=== PATIENT | female | born 1985 | race Caucasian/White ===

== ENCOUNTER 2021-11-23 05:29 | Emergency (ER) | payer OTHER, SELFPAY ==
--- NOTE | ~2021-11-23 | CT_ITS ---
EXAMINATION: CT cervical spine wo con DATE: 11/23/2021 06:40 INDICATION: Head injury. Altered mental status. TECHNIQUE: Computed tomography (CT) of the cervical spine was performed without intravenous contrast. Automated exposure control and iterative reconstruction technique were employed. The dose-length pro duct was 401.36 mGy-cm. COMPARISON: CT cervical spine 06/21/2018 FINDINGS: The endotracheal tube tip is 1.3 cm above the jett. Partially visualized is a nasogastric tube. There is a fracture of posterior skull with extension through the foramen magnum and left occi pital condyle. There is kyphosis of cervical spine. There is 2 mm retrolisthesis of C5 on C6. Vertebr al body heights are normal. There is mildly decreased disc height at C4-C5 and C5-C6. The following d isc levels are specifically discussed: C2-C3: There is no uncovertebral joint osteoarthritis. There is mild right and moderate left facet makenna int osteoarthritis. There is no neural foraminal stenosis. There is no central canal stenosis. C3-C4: There is mild bilateral uncovertebral joint osteoarthritis. There is mild left facet joint ost eoarthritis. There is no neural foraminal stenosis. There is no central canal stenosis. C4-C5: There is mild bilateral uncovertebral joint osteoarthritis. There is no facet joint osteoarthr itis. There is no neural foraminal stenosis. There is no central canal stenosis. C5-C6: There is severe bilateral uncovertebral joint osteoarthritis. There is no facet joint osteoart hritis. There is mild right and moderate left neural foraminal stenosis. There is mild central canal stenosis. C6-C7: There is no uncovertebral joint osteoarthritis. There is no facet joint osteoarthritis. There is no neural foraminal stenosis. There is no central canal stenosis. C7-T1: There is no uncovertebral joint osteoarthritis. There is moderate right and mild left facet makenna int osteoarthritis. There is mild right neural foraminal stenosis. There is no central canal stenosis . IMPRESSION: 1. Fracture of the posterior skull with extension to the foramen magnum and left occipital condyle. 2. Moderate cervical spondylosis. Reviewed, dictated and finalized at location A. IMPRESSION: 1. Fracture of the posterior skull with extension to the foramen magnum and lef t occipital condyle. 2. Moderate cervical spondylosis.
--- NOTE | ~2021-11-23 | XR_ITS ---
EXAMINATION: XR chest ET placement DATE: 11/23/2021 06:48 INDICATION: Intubation. TECHNIQUE: A single frontal view of the chest was obtained. COMPARISON: Chest 2 views 06/21/2018 FINDINGS: The lung volumes are small. There are mild airspace opacities in all lung zones bilaterally with a perihilar predominance. No pleural effusion or pneumothorax. The heart size is normal. The en dotracheal tube tip is 1.9 cm above the jett. The nasogastric tube tip is beyond the inferior dolores n of the radiograph, but at least to the stomach. IMPRESSION: 1. Small lung volumes with mild airspace opacities in all lung zones bilaterally with a perihilar pre dominance, consistent with atelectasis versus mild pulmonary edema versus pneumonia. Reviewed, dictated and finalized at location A. IMPRESSION: 1. Small lung volumes with mild airspace opacities in all lung zones bilaterall y with a perihilar predominance, consistent with atelectasis versus mild pulmon violette edema versus pneumonia.
--- NOTE | ~2021-11-23 | CT_ITS ---
EXAMINATION: CT brain wo con DATE: 11/23/2021 06:40 INDICATION: Altered mental status. TECHNIQUE: Computed tomography (CT) of the head was performed without intravenous contrast. The mA wa s adjusted according to patient size. Iterative reconstruction technique was employed. The dose-lengt h product was 605.33 mGy-cm. COMPARISON: Head CT 06/21/2018 FINDINGS: There are bilateral acute subdural hematomas overlying the brain with maximum thickness of 4 mm on the right and 5 mm on the left. There is acute subarachnoid hemorrhage in sulci of the tempor al lobes. There is no acute ischemic infarct or abnormal mass lesion. There is low-attenuation in ant erior right frontal lobe. The ventricles are normal in size. There is mucosal thickening in the paran dusty sinuses. The orbits are normal. The mastoid air cells are normal. There is a fracture of posteri or skull extending to the foramen magnum and left occipital condyle. Partially visualized is dental d isease. IMPRESSION: 1. Bilateral acute subdural hematomas. 2. Acute subarachnoid hemorrhage in sulci of the temporal lobes. 3. Low-attenuation in anterior right frontal lobe, likely contusion. Sensitivity and specificity are decreased in this area by motion artifact. 4. Fracture of posterior skull extending to the foramen magnum and left occipital condyle. 5. Dental disease. Reviewed, dictated and finalized at location A. IMPRESSION: 1. Bilateral acute subdural hematomas. 2. Acute subarachnoid hemorrhage in sulci of the temporal lobes. 3. Low-attenuation in anterior right frontal lobe, likely contusion. Sensitivit y and specificity are decreased in this area by motion artifact. 4. Fracture of posterior skull extending to the foramen magnum and left occipit al condyle. 5. Dental disease.
[2021-11-23 05:34] VITALS: PULSE 63; RESP 20; O2SAT 99
--- NOTE | 2021-11-23 05:37 | PC.NURSE ---
vrbo dr gonsalez to give ativan 2mg and benadryl 50mg.
--- NOTE | 2021-11-23 05:38 | ECG_ITS ---
Measurements Intervals [place] Rate: 55 P: 23 OH: 90 QRS: 72 QRSD: 88 T: 38 QT: 414 QTc: 398 Interpretive Statements SINUS BRADYCARDIA WITH SHORT OH INTERVAL NONSPECIFIC ST CHANGES [0.05+ mV ST DEPRESSION] NO PREVIOUS ECG AVAILABLE FOR COMPARISON Electronically Signed On 11-23-2021 18:52:25 CDT by Radhika Jim M.D.
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
--- NOTE | 2021-11-23 05:46 | PC.NURSE ---
VORB ERP 50 mg benadryl and 2 mg ativan give ivp 0533 2 mg Ativan and 50 mg Benadryl given ivp
[2021-11-23 05:54] LABS: Basophils Absolute Auto 0.1 K/mm3 (0.0-0.1); Basophils Percent Auto 0.2 % (0.2-1.2); Eosinophils Absolute Auto 0.5 K/mm3 (0-0.3); Eosinophils Percent Auto 2.1 % (0-4.4); Hematocrit 33.9 % (37.0-47.0); Hemoglobin 11.5 g/dL (12.0-15.0); Immature Granulocyte Absolute 0.29 K/mm3 (0.00-0.031); Immature Granulocyte Percent A 1.3 % (0-0.5); Lymphocytes Absolute Auto 6.07 K/mm3 (0.9-3.2); Mean Corpuscular HGB Conc 33.9 g/dl (32-36); Mean Corpuscular Hemoglobin 30.9 pg (26-34); Mean Corpuscular Volume 91.1 fl (80-100); Mean Platelet Volume 11.4 fl (7.4-10.4); Monocytes Absolute Auto 1.8 K/mm3 (0.1-0.6); Monocytes Percent Auto 8.4 % (2.6-8.5); Platelet Count Result 342 k/mm3 (150-375); Red Blood Count 3.72 M/mm3 (4.2-5.4); Red Cell Distribution Width 13.1 % (11.5-14.5); White Blood Count 21.7 K/mm3 (4.5-10.0)
[2021-11-23 06:03] LABS: Ethanol < 10 mg/dL (<10); Partial Thromboplastin Time 23.5 SECONDS (22.3-36.8)
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
[2021-11-23 06:08] LABS: Prothrombin Time 12.6 Seconds (11.1-14.7)
[2021-11-23 06:12] VITALS: BP 140/71; PULSE 48; RESP 22; O2SAT 99
[2021-11-23 06:15] VITALS: BP 123/73; PULSE 55; RESP 18; O2SAT 100
[2021-11-23 06:15] LABS: Alanine Aminotransferase 23 U/L (4-35); Albumin Level 3.5 g/dL (3.5-5.1); Alkaline Phosphatase 178 U/L (38-126); Anion Gap 9 mmol/L (8-16); Aspartate Amino Transferase 30 U/L (14-36); Bilirubin,Total 0.2 mg/dL (0.2-1.3); Blood Urea Nitrogen 12 mg/dL (7-17); Calcium 8.3 mg/dL (8.4-10.2); Carbon Dioxide 20 mmol/L (22-30); Chloride 108 mmol/L (98-107); Estimated Glomerular Filt Rate > 60; Glucose 163 mg/dL (65-110); Lipase 148 U/L (23-300); Magnesium 1.7 mg/dL (1.6-2.3); Potassium 3.5 mmol/L (3.4-5.0); Sodium 137 mmol/L (137-145)
[2021-11-23 06:18] VITALS: BP 88/75; PULSE 56; RESP 14; O2SAT 100
--- NOTE | 2021-11-23 06:20 | PC.NURSE ---
Pt intubated. FHT;s 130. Abdomen remains soft and has been noted to be soft since arrival. No vaginal bleeding leakage of fluid seen. ER preparing pt for Cat Scan/.
[2021-11-23 06:21] VITALS: BP 111/76; PULSE 74; RESP 20; O2SAT 100
--- NOTE | 2021-11-23 06:40 | PC.NURSE ---
Returns from cat scan. Fht's 140. Decreased variability. Pt is sedated.
[2021-11-23 06:45] VITALS: BP 120/74; PULSE 65; RESP 14; O2SAT 93
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
--- NOTE | 2021-11-23 07:00 | PC.NURSE ---
0605 75mcg fentanyl given IVP VORB 0606 2 mg versed given IVP VORB 0607 100 succinylcholine IVP VORB 0608 pt. intubated w/ 7.5 ET tube measuring at 24 at the lip. chest rise and fall and bilat. breath sounds heard by ERP. 0609 16 fr. OG placed at 67 at lip. 0618 Propofol administered at 15 mcg/kg/min 85.4 kg 0620 soft restraints placed on pt. 2+ pulses noted and pink skin noted on fingers. 0625 pt. transported on [facility] to ct w/ Respiratory bagging pt. 0645 50 mcg IVP VORB fentanyl given IVP VORB ERP. 0650 50 mcg IVP Propofol administered by flight staff VORB ERP. 0651 65 HR 120/74 BP 93%
[2021-11-23 14:31] LABS: Glucose Point of Care 160 mg/dl (65-105)
== END 2021-11-23 06:56 | disposition short-term general hospital (02) ==
PROVIDERS: Emergency Provider General Practice
DX: O9A.213 Injury, poisoning and certain other consequences of external causes complicating pregnancy, third trimester (principal); S06.5X0A Traumatic subdural hemorrhage without loss of consciousness, initial encounter; S06.6X0A Traumatic subarachnoid hemorrhage without loss of consciousness, initial encounter; S02.19XA Other fracture of base of skull, initial encounter for closed fracture; Z3A.29 29 weeks gestation of pregnancy; V58.7XXA Person on outside of pick-up truck or van injured in noncollision transport accident in traffic accident, initial encounter; O99.613 Diseases of the digestive system complicating pregnancy, third trimester; K02.9 Dental caries, unspecified; R94.31 Abnormal electrocardiogram [ECG] [EKG]; R00.1 Bradycardia, unspecified; O99.891 Other specified diseases and conditions complicating pregnancy; M47.812 Spondylosis without myelopathy or radiculopathy, cervical region; R91.8 Other nonspecific abnormal finding of lung field
CPT/HCPCS: 31500; 36415; 70450; 72125; 80053; 80307; 82948; 83690; 83735; 85025; 85610; 85730; 86850; 86900; 86901; 93005; 96374; 96375; 96376; 99291; J0330; J2060; J2250; J2704; J3010; J7120; L0140

== ENCOUNTER 2022-05-01 17:34 | Emergency (ER) | payer OTHER, SELFPAY ==
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
--- NOTE | ~2022-05-01 | CT_ITS ---
EXAMINATION: CT brain wo con DATE: 05/01/2022 19:48 INDICATION: headache, head trauma . TECHNIQUE: Computed tomography (CT) of the head was performed without intravenous contrast. The mA wa s adjusted according to patient size. Iterative reconstruction technique was employed. The dose-lengt h product was 605.33 mGy-cm. COMPARISON: 11/23/2021 FINDINGS: No acute intracranial hemorrhage or extra-axial fluid collection. No hydrocephalus, mass, or herniation. No acute ischemic infarct. Unremarkable dural venous sinus attenuation. No acute osseous abnormality. Healing old posterior skull fracture. The aerated spaces are clear. IMPRESSION: No acute intracranial process. Reviewed, dictated and finalized at location K.
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
[2022-05-01 18:01] VITALS: BP 116/95; PULSE 77; RESP 17; TEMP 37.1; O2SAT 100
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
[2022-05-01 19:25] VITALS: BP 113/82; PULSE 62; O2SAT 100
[2022-05-01] MEDS: ACETAMINOPHEN 500 MG TABLET 1000 MG PO (19:25)
[2022-05-01 19:30] VITALS: BP 119/91; O2SAT 100
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
[2022-05-01 20:45] VITALS: BP 122/84; PULSE 68; RESP 18; O2SAT 100
== END 2022-05-01 20:45 | disposition home or self-care (01) ==
PROVIDERS: Emergency Provider Emergency Medicine
DX: T14.8XXA Other injury of unspecified body region, initial encounter (principal); Y04.2XXA Assault by strike against or bumped into by another person, initial encounter
CPT/HCPCS: 70450; 70490; 71046; 72128; 99284; A9270

== ENCOUNTER 2023-03-21 18:19 | Emergency (ER) | payer OTHER, SELFPAY ==
--- NOTE | ~2023-03-21 | XR_ITS ---
EXAMINATION: XR foot LT min 3V DATE: 03/21/2023 18:45 INDICATION: Left foot pain, initial encounter TECHNIQUE: Dorsoplantar, lateral, and 2 oblique views of the left foot were obtained. COMPARISON: None. FINDINGS: There is an acute, traumatic, closed, transverse fracture at the base of the fifth metatars al. No additional fracture is identified. Bone alignment is normal. There is lateral soft tissue swel ling of the foot. IMPRESSION: 1. Transverse fracture at the base of the fifth metatarsal. Reviewed, dictated and finalized at location F.
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
[2023-03-21 18:32] VITALS: BP 123/99; PULSE 96; RESP 16; TEMP 36.8; O2SAT 100
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
== END 2023-03-21 19:20 | disposition home or self-care (01) ==
PROVIDERS: Emergency Provider Nurse Practitioner Family; PCP Emergency Medicine
DX: M54.6 Pain in thoracic spine (principal); S92.351A Displaced fracture of fifth metatarsal bone, right foot, initial encounter for closed fracture; W01.0XXA Fall on same level from slipping, tripping and stumbling without subsequent striking against object, initial encounter
CPT/HCPCS: 73630; 99213; G0463

== ENCOUNTER 2023-04-12 11:37 | Emergency (ER) | payer OTHER, SELFPAY ==
[2023-04-12 11:49] VITALS: BP 147/84; PULSE 85; RESP 16; TEMP 37.2; O2SAT 99
--- NOTE | 2023-04-12 12:25 | ED.GENADULT ---
HPI - General Adult General Chief complaint: Unspecified Stated complaint: Right Back/Arm Time Seen by Provider: 04/12/23 12:25 Source: patient, RN notes reviewed and old records reviewed Mode of arrival: ambulatory Limitations: no limitations History of Present Illness HPI narrative: 38-year-old female with complaints of pain to her right arm upper back and right shoulder for almost 1month duration, received medications of Ibuprofen and muscle relaxer on the 3rd of this month. Patient reports that she fell recently and had had her right arm outstretched and now having increased pain to her right arm and right shoulder blade area. Patient has full ROM of right arm and right shoulder, denies any tingling or numbness to right arm with strong pulses noted, patient repots that pain does radiate down her right arm at times. Patient reports that she has been using Lidocaine patches and Ibuprofen. MD complaint: on going one month increased today Onset (ago): month(s) (for one mnth with increased pain today) Severity scale (1-10): 9 Exacerbating factors: movement Treatments prior to arrival: NSAID and other (Lidocaine patch) Related Data Allergies Allergy/AdvReac Type Severity Reaction Status Date / Time No Known Allergies Allergy Unverified 04/12/23 11:47 Review of Systems Review of Systems: CONSTITUTIONAL: Denies fever, chills, or sweats. EYES: Denies visual changes, redness, or discharge. ENT: Denies rhinorrhea, congestion, sore throat, or otalgia. CARDIOVASCULAR: Denies chest pain, palpitations, or edema. RESPIRATORY: Denies cough or dyspnea. GASTROINTESTINAL: Denies abdominal pain, nausea, vomiting, or diarrhea. GENITOURINARY: Denies dysuria or hematuria. SKIN: Denies rash or itching. MUSCULOSKELETAL: Reports right shoulder blade discomfort and right arm pain, or myalgia. NEUROLOGIC: Denies headache, numbness, or weakness. PSYCHIATRIC: Denies anxiety or depression. All systems reviewed & are unremarkable except as noted in HPI and below PMFSH Past Medical History Medical History Fracture of left foot Preeclampsia Surgical History Surgical History No pertinent past surgical history Social History Social History (Updated 04/13/23 @ 14:49 by Fernanda Vogel NP) Smoking packs per day: 0.5 Smoking cigarettes per day: 10.0 Smoking status: Current every day smoker Alcohol intake: current Alcohol use details: social Gender identity (if verbalized by the patient): Female Comments At time of signature, agree with nursing past medical, surgical, social and family history. There is no relevant family history pertinent to the presenting complaint Exam Narrative: GENERAL: Well-appearing, well-nourished, and in no acute distress. HEAD: Normocephalic, atraumatic. EYES: PERRLA and EOMI. ENT: Nares clear, no rhinorrhea or epistaxis. Mucous membranes moist. NECK: Supple.no lymphadenopathy CHEST: Clear to auscultation. No respiratory distress.SAO2 99% on room air HEART: Regular rate and rhythm. No murmur heard. Normal peripheral pulses. ABDOMEN: Soft, nontender, nondistended, normal active bowel sounds. EXTREMITIES: Normal range of motion. No edema.verbalizes discomfort to her right shoulder blade and right arm circulation sensation and mobility intact. SKIN: Warm, dry, no rash. NEURO: No focal deficits. Alert and oriented x3. Course Course Emergency Course: Patient is aware of diagnosis, understands and agrees to treatment plan.? Anticipatory guidance given.? Patient agrees to follow-up as directed and is aware of reasons to seek care at the emergency department. Portions of this record may have been created with voice recognition software Level of Care: Express Care Visit Vital Signs Vital signs: Vital Signs Temperature 37.2 C 04/12/23 11:49 Pulse Rate 85 04/12/23 11:49 Respiratory Rat
== END 2023-04-12 12:47 | disposition home or self-care (01) ==
PROVIDERS: Emergency Provider Registered Nurse; PCP Emergency Medicine
DX: M25.511 Pain in right shoulder (principal); M79.621 Pain in right upper arm; F17.210 Nicotine dependence, cigarettes, uncomplicated
CPT/HCPCS: 99213; G0463

== ENCOUNTER 2023-12-20 12:28 | Emergency (ER) | payer OTHER, SELFPAY ==
[2023-12-20 12:40] VITALS: BP 135/82; PULSE 91; RESP 16; TEMP 36.7; O2SAT 98
--- NOTE | 2023-12-20 12:52 | ED.DENTAL ---
HPI - Dental/Oral General Chief complaint: Dental/Oral Stated complaint: tooth pain front/right side Time Seen by Provider: 12/20/23 12:45 Source: patient and RN notes reviewed Mode of arrival: ambulatory Limitations: no limitations History of Present Illness HPI Narrative: Patient presents today complaining of a 3-4 day history of right upper tooth pain. States pain radiates to the jaw. Currently rates her pain 10/10 and has been using ibuprofen and Orajel without much relief. She does not currently have a dentist. Related Data Allergies Allergy/AdvReac Type Severity Reaction Status Date / Time No Known Allergies Allergy Verified 12/20/23 12:32 Review of Systems Review of Systems: CONSTITUTIONAL: Denies body aches, fever, chills, or sweats. EYES: Denies visual changes, redness, or discharge. ENT: Denies rhinorrhea, congestion, sore throat, or otalgia.+ tooth pain CARDIOVASCULAR: Denies chest pain, palpitations, or edema. RESPIRATORY: Denies cough or dyspnea. GASTROINTESTINAL: Denies abdominal pain, nausea, vomiting, or diarrhea. GENITOURINARY: Denies dysuria or hematuria. SKIN: Denies rash, itching, or wounds. MUSCULOSKELETAL: Denies back pain, joint pain, or myalgia. NEUROLOGIC: Denies headache, numbness, tingling, or weakness. PSYCH: Denies depression or anxiety. PMFSH Past Medical History Medical History Fracture of left foot Preeclampsia Surgical History Surgical History No pertinent past surgical history Social History Social History Smoking packs per day: 0.5 Smoking cigarettes per day: 10.0 Smoking status: Current every day smoker Alcohol intake: current Alcohol use details: social Gender identity (if verbalized by the patient): Female Comments At time of signature, I have reviewed and agree with nursing past medical, surgical, social and family history unless otherwise noted. Please see nursing chart for further information. There is no relevant family history pertinent to the presenting complaint Exam Narrative: GENERAL: Well-appearing, well-nourished, and in no acute distress. HEAD: Normocephalic, atraumatic. EYES: EOMI. No redness or drainage. Conjunctivae normal. ENT: Mucous membranes pink and moist. Pain to tooth 6 and 7 with some swelling and redness to the gumline. No obvious periapical abscess. Patient does have some poor dentition and rounding of the teeth generally. No trismus. No facial swelling. NECK: Normal AROM. CHEST: No respiratory distress. EXTREMITIES: Normal range of motion. No edema. SKIN: Warm, dry, no rash. Capillary refill normal. Normal skin turgor. NEURO: No focal deficits. Alert and oriented x3. Gait steady. PSYCH: Normal affect. No signs of depression or anxiety. Course Course Level of Care: Express Care Visit Vital Signs Vital signs: Vital Signs Temperature 98.1 F 12/20/23 12:40 Pulse Rate 91 12/20/23 12:40 Respiratory Rate 16 12/20/23 12:40 Blood Pressure 135/82 12/20/23 12:40 Pulse Oximetry 98 12/20/23 12:40 Oxygen Delivery Room Air 12/20/23 12:40 Temperature 98.1 F 12/20/23 12:40 Pulse Rate 91 12/20/23 12:40 Respiratory Rate 16 12/20/23 12:40 Blood Pressure 135/82 12/20/23 12:40 Pulse Oximetry 98 12/20/23 12:40 Oxygen Delivery Room Air 12/20/23 12:40 Reviewed MDM - Dental/Oral MDM Narrative Medical decision making narrative: Patient will be given a prescription for amoxicillin with recommendation to follow-up with a dentist as soon as possible. Anticipatory guidance given. Differential Diagnosis Differential diagnosis: Likely gingival abscess, dental caries, toothache, dental abscess and fracture of tooth Critical Care Time Critical Care Time Critical Care Time: No Discharge Plan Discharge
== END 2023-12-20 13:00 | disposition home or self-care (01) ==
PROVIDERS: Emergency Provider Nurse Practitioner
DX: K08.89 Other specified disorders of teeth and supporting structures (principal); F17.210 Nicotine dependence, cigarettes, uncomplicated
CPT/HCPCS: 99213; G0463